=== PATIENT | male | born 1950 | race Caucasian/White ===

== ENCOUNTER 2019-01-11 06:36 | Day surgery (SDC) | payer MEDICARE ==
[~2019-01-11 06:36] MED LIST: ACYCLOVIR400 MG PO; ALFUZOSIN HCL E10 MG PO; ALLEGRA180 MG PO; AMLODIPINE5 MG PO; ASPIRIN LOW DOS81 M2 PO; B-121000 MC1 PO; C 250 PO; CHROMIUM PIC PO; D-3-55000 UNIT PO; DILAUDID 2MG2 MG/TA1 PO; FENOFIBRATE145 MG PO; FLEXERIL5 MG PO; GNP RED YEAST RICE PO; GNP RED YEAST600 MG; KRILL OIL OMEG300 MG PO; LEVOTHYROXIN100 MC1 PO; LEVOTHYROXIN150 MCG PO; LOSARTAN POT100 MG PO; METFORMIN500 M1 PO; METOPROL TAR25 MG PO; NEXIUM20 M1 PO; PREDNISONE20 MG PO; REPATHA140 MG/ML SC; SAW PALMETTO450 MG PO
[2019-01-11 08:32] VITALS: BP 129/60
== END 2019-01-11 08:44 | disposition home or self-care (01) ==
LOC: ENDO 06:36 → ORM 07:45 → ENDO 08:44
PROVIDERS: ATTEND Surgery
PROC: 0DB68ZX Excision of Stomach, Via Natural or Artificial Opening Endoscopic, Diagnostic (ICD-10-PCS; principal; 2019-01-11)
PROC: 3E0G8GC Introduction of Other Therapeutic Substance into Upper GI, Via Natural or Artificial Opening Endoscopic (ICD-10-PCS; 2019-01-11)
DX: K22.70 Barrett's esophagus without dysplasia (principal); K31.7 Polyp of stomach and duodenum; K25.9 Gastric ulcer, unspecified as acute or chronic, without hemorrhage or perforation; K44.9 Diaphragmatic hernia without obstruction or gangrene; I25.10 Atherosclerotic heart disease of native coronary artery without angina pectoris; Z95.1 Presence of aortocoronary bypass graft